=== PATIENT | male | born 2000 | race Caucasian/White ===

== ENCOUNTER 2023-09-24 11:29 | Emergency (ER) | payer SELFPAY ==
[2023-09-24] MEDS: Lidocaine 1% 5 ML VIAL INJECT ONE (12:04)
== END 2023-09-24 12:36 | disposition home or self-care (01) ==
LOC: MW.ED 11:29
DX: S61.212A Laceration without foreign body of right middle finger without damage to nail, initial encounter (principal); S61.214A Laceration without foreign body of right ring finger without damage to nail, initial encounter; S61.210A Laceration without foreign body of right index finger without damage to nail, initial encounter; Z75.8 Other problems related to medical facilities and other health care; W26.8XXA Contact with other sharp object(s), not elsewhere classified, initial encounter; Y93.89 Activity, other specified
CPT/HCPCS: 12001; 99282; 99283; J3490